=== PATIENT | female | born 1985 | race Caucasian/White ===

== ENCOUNTER 2016-12-08 07:10 | Inpatient (IN) | payer BC, MEDICAID ==
[~2016-12-08] VITALS: Ht 160 cm; Wt 60.8 kg
[2016-12-08] VITALS (13 sets, daily range): BP systolic 98–134; RESP 12–20; TEMP 97.3–98.8; Ht 160 cm; Wt 60.8 kg
[~2016-12-08 07:10] MED LIST: LIDOCAINE 1% BUFFERED 1 ML SYR INTRADERM PRN
[2016-12-08] MEDS ORDERED: METOCLOPRAMIDE 10 MG/2 ML VIAL IV PUSH ONE (07:25)
[2016-12-08] MEDS ORDERED: CEFAZOLIN (LD/OB) 100 ML IV ONE (07:25)
[2016-12-08] MEDS ORDERED: LACT RINGERS 1,000 ML IV SCH ×2 (07:25→09:40)
[2016-12-08] MEDS ORDERED: FAMOTIDINE 20 MG INJ IV ONE (07:25)
[2016-12-08] MEDS ORDERED: OXYTOCIN 10 UNITS/ML VIAL IV ONE (07:41)
[2016-12-08] MEDS ORDERED: NALOXONE 0.4 MG/ML AMP IV PRN (09:05)
[2016-12-08] MEDS ORDERED: PROMETHAZINE 25 MG/ML VIAL IV PRN (09:05)
[2016-12-08] MEDS ORDERED: BUTORPHANOL 1 MG/ML VIAL IV PRN (09:05)
[2016-12-08] MEDS ORDERED: MORPHINE 2 MG/ML SYR IV PRN ×2 (09:05)
[2016-12-08] MEDS ORDERED: DIPHENHYDRAMINE 50 MG/ML VIAL IV PRN (09:05)
[2016-12-08] MEDS ORDERED: MEPERIDINE 25 MG/ML IV PRN (09:05)
[2016-12-08] MEDS ORDERED: DILAUDID 1 MG/ML AMP IV PRN (09:05)
[2016-12-08] MEDS ORDERED: MORPHINE 4 MG/ML SYR IV PRN ×2 (09:05)
[2016-12-08] MEDS ORDERED: SALINE FLUSH 10 ML FLUSH PRN (09:05)
[2016-12-08] MEDS ORDERED: ONDANSETRON 4 MG VIAL IV PRN ×3 (09:05→09:40)
[2016-12-08] MEDS ORDERED: OXYCODONE 5 MG TAB PO PRN (09:05)
[2016-12-08] MEDS ORDERED: MAG HYDROX 30 ML UDC PO PRN (09:40)
[2016-12-08] MEDS ORDERED: OXYTOCIN 15 UNITS/250 ML NS 250 ML IV SCH (09:40)
[2016-12-08] MEDS ORDERED: TDaP 0.5 ML VIAL IM.VACC ONE (09:40)
[2016-12-08] MEDS ORDERED: MEASLES,MUMPS,RUBELLA VAC SUBQ.VACC ONE (09:40)
[2016-12-08] MEDS ORDERED: MISOPROSTOL 100 MCG TAB ONE (11:21)
[2016-12-08] MEDS: KETOROLAC 30 MG/ML VIAL IV SCH ×3 (11:28→23:38)
[2016-12-08] MEDS: MISOPROSTOL 200 MCG TAB PO SCH ×2 (11:30→13:57)
[2016-12-08] MEDS: SALINE FLUSH 10 ML FLUSH SCH (21:56)
[2016-12-09 02:27] VITALS: BP_SYST 110; TEMP 98.2
[2016-12-09] MEDS: KETOROLAC 30 MG/ML VIAL IV SCH (05:18)
[2016-12-09 05:19] VITALS: BP_SYST 119; RESP 14; TEMP 98.1
[2016-12-09] MEDS: SODIUM CHLORIDE 0.9% FLUSH BAG 500 ML IV SCH (07:29)
[2016-12-09] MEDS: SALINE FLUSH 10 ML FLUSH SCH ×2 (07:30→20:00)
[2016-12-09] MEDS: DOCUSATE SOD 100 MG CAP PO SCH (08:27)
[2016-12-09 09:23] VITALS: BP_SYST 114; RESP 18; TEMP 97.9
[2016-12-09] MEDS: Ibuprofen 600 MG TAB PO SCH ×3 (12:05→23:21)
[2016-12-09 17:33] VITALS: BP_SYST 116; RESP 18; TEMP 98.3
[2016-12-10 05:43] VITALS: BP_SYST 109; RESP 16; TEMP 97.6
[2016-12-10] MEDS: Ibuprofen 600 MG TAB PO SCH ×2 (05:43→11:51)
[2016-12-10] MEDS: SODIUM CHLORIDE 0.9% FLUSH BAG 500 ML IV SCH (06:00)
[2016-12-10] MEDS: SALINE FLUSH 10 ML FLUSH SCH (07:15)
[2016-12-10] MEDS: DOCUSATE SOD 100 MG CAP PO SCH (09:13)
[2016-12-10 09:33] VITALS: BP_SYST 106; TEMP 98.3
[2016-12-10 09:34] VITALS: RESP 20
[2016-12-10 10:06] VITALS: BP_SYST 106; RESP 20; TEMP 98.3
[2016-12-10 13:42] VITALS: BP_SYST 125; RESP 18; TEMP 97.6
== END 2016-12-10 14:11 | disposition home or self-care (01) | DRG 766 ==
LOC: LD 07:10 → OB 12:32
PROVIDERS: ADMIT Obstetrics & Gynecology Reproductive Endocrinology; ATTEND Obstetrics & Gynecology Reproductive Endocrinology
PROC: 10D00Z1 Extraction of Products of Conception, Low, Open Approach (ICD-10-PCS; principal; 2016-12-08)
PROC: 10907ZC Drainage of Amniotic Fluid, Therapeutic from Products of Conception, Via Natural or Artificial Opening (ICD-10-PCS; 2016-12-08)
DX: O34.211 Maternal care for low transverse scar from previous cesarean delivery (principal); Z37.0 Single live birth; Z3A.39 39 weeks gestation of pregnancy
CPT/HCPCS: 82803; 85025